=== PATIENT | male | born 1990 | race Caucasian/White ===

== ENCOUNTER 2017-11-28 18:18 | Emergency (ER) | payer MEDICAID ==
[~2017-11-28] VITALS: Ht 182.9 cm; Wt 135.7 kg
[2017-11-28 19:32] VITALS: Ht 182.9 cm; Wt 135.7 kg
[2017-11-29 00:11] VITALS: BP 137/72
== END 2017-11-29 00:12 | disposition home or self-care (01) ==
LOC: ED 18:18
DX: N43.3 Hydrocele, unspecified (principal)
CPT/HCPCS: J1885